=== PATIENT | female | born 1985 ===

== ENCOUNTER 2020-03-08 15:00 | Inpatient (IN) | payer OTHER ==
[~2020-03-08] VITALS: Ht 157.5 cm; Wt 77.1 kg
[2020-03-25] MEDS ORDERED: PRENATAL TABLE1 EAC1 PO (05:21)
[2020-03-25] MEDS ORDERED: IRON236 MG PO (05:22)
== END 2020-03-27 10:26 | disposition home or self-care (01) | DRG 807 ==
LOC: LDR 03-25 08:30 → OB/GYN 03-25 15:00 → SURG-SUITE 03-25 15:48
PROVIDERS: ADMIT Specialist; ATTEND Specialist
PROC: 10E0XZZ Delivery of Products of Conception, External Approach (ICD-10-PCS; principal; 2020-03-25)
PROC: 0HQ9XZZ Repair Perineum Skin, External Approach (ICD-10-PCS; 2020-03-25)
PROC: 0UQGXZZ Repair Vagina, External Approach (ICD-10-PCS; 2020-03-25)
PROC: 4A1HXFZ Monitoring of Products of Conception, Cardiac Rhythm, External Approach (ICD-10-PCS; 2020-03-25)
DX: O70.0 First degree perineal laceration during delivery (principal); Z37.0 Single live birth; O71.89 Other specified obstetric trauma; O13.4 Gestational [pregnancy-induced] hypertension without significant proteinuria, complicating childbirth; Z3A.40 40 weeks gestation of pregnancy

== ENCOUNTER 2020-03-25 03:55 | Outpatient (CLI) | payer OTHER ==
[2020-03-25] MEDS ORDERED: PRENATAL TABLE1 EAC1 PO (05:21)
[2020-03-25] MEDS ORDERED: IRON236 MG PO (05:22)
== END 2020-03-25 08:32 | disposition still patient (30) ==
LOC: OBS/DEL 03:55
PROVIDERS: ATTEND Specialist
DX: O13.3 Gestational [pregnancy-induced] hypertension without significant proteinuria, third trimester (principal); Z20.828 Contact with and (suspected) exposure to other viral communicable diseases

== ENCOUNTER 2021-10-03 13:03 | Outpatient (CLI) | payer OTHER ==
[~2021-10-03 13:03] MED LIST: IRON236 MG PO; PRENATAL TABLE1 EAC1 PO
== END 2021-10-03 14:15 | disposition home or self-care (01) ==
LOC: PRENATAL 13:03
PROVIDERS: ATTEND Obstetrics & Gynecology Maternal & Fetal Medicine
DX: O35.0XX0 Maternal care for (suspected) central nervous system malformation in fetus, not applicable or unspecified (principal); O35.3XX0 Maternal care for (suspected) damage to fetus from viral disease in mother, not applicable or unspecified; O09.529 Supervision of elderly multigravida, unspecified trimester; Z3A.23 23 weeks gestation of pregnancy

== ENCOUNTER 2022-01-08 13:51 | Inpatient (IN) | payer OTHER ==
[~2022-01-08] VITALS: Ht 157.5 cm; Wt 3.2 kg
[2022-01-09] MEDS ORDERED: ALLERGY RELIEF180 MG (08:32)
== END 2022-01-11 14:58 | disposition home or self-care (01) | DRG 788 ==
LOC: OBS/DEL 13:51 → NST 13:51 → OBS/DEL 14:43 → LDR 16:08 → OB/GYN 16:08
PROVIDERS: ADMIT Obstetrics & Gynecology; ATTEND Obstetrics & Gynecology
PROC: 4A1HXCZ Monitoring of Products of Conception, Cardiac Rate, External Approach (ICD-10-PCS; 2022-01-08)
PROC: 10D00Z1 Extraction of Products of Conception, Low, Open Approach (ICD-10-PCS; principal; 2022-01-08 17:00)
DX: O82 Encounter for cesarean delivery without indication (principal); O76 Abnormality in fetal heart rate and rhythm complicating labor and delivery; Z3A.37 37 weeks gestation of pregnancy; Z37.0 Single live birth; Z20.822 Contact with and (suspected) exposure to COVID-19

== ENCOUNTER 2022-09-20 13:12 | Outpatient (CLI) | payer OTHER ==
[~2022-09-20 13:12] MED LIST changes: +ALLERGY RELIEF180 MG
== END 2022-09-20 15:00 | disposition home or self-care (01) ==
LOC: PRENATAL 13:12
PROVIDERS: ATTEND Obstetrics & Gynecology Maternal & Fetal Medicine
DX: O36.80X0 Pregnancy with inconclusive fetal viability, not applicable or unspecified (principal); O34.219 Maternal care for unspecified type scar from previous cesarean delivery; O09.529 Supervision of elderly multigravida, unspecified trimester; Z3A.11 11 weeks gestation of pregnancy

== ENCOUNTER 2022-11-20 09:58 | Outpatient (CLI) | payer OTHER | END 2022-11-20 10:56 | disposition home or self-care (01) | LOC: PRENATAL 09:58 | PROVIDERS: ATTEND Obstetrics & Gynecology Maternal & Fetal Medicine | DX: O35.9XX0 Maternal care for (suspected) fetal abnormality and damage, unspecified, not applicable or unspecified (principal); O35.3XX0 Maternal care for (suspected) damage to fetus from viral disease in mother, not applicable or unspecified; O34.219 Maternal care for unspecified type scar from previous cesarean delivery; O44.00 Complete placenta previa NOS or without hemorrhage, unspecified trimester; Z3A.20 20 weeks gestation of pregnancy ==

== ENCOUNTER 2023-02-17 13:36 | Outpatient (CLI) | payer OTHER | END 2023-02-17 13:38 | disposition home or self-care (01) | LOC: PRENATAL 13:36 | PROVIDERS: ATTEND Obstetrics & Gynecology Maternal & Fetal Medicine | DX: O26.849 Uterine size-date discrepancy, unspecified trimester (principal); O36.8199 Decreased fetal movements, unspecified trimester, other fetus; O09.529 Supervision of elderly multigravida, unspecified trimester; O34.219 Maternal care for unspecified type scar from previous cesarean delivery; Z36.9 Encounter for antenatal screening, unspecified; O44.00 Complete placenta previa NOS or without hemorrhage, unspecified trimester; Z3A.33 33 weeks gestation of pregnancy ==

== ENCOUNTER 2023-03-28 09:00 | Inpatient (IN) | payer OTHER ==
[~2023-03-28] VITALS: Ht 157.5 cm; Wt 80.3 kg
[2023-03-28 10:21] LABS: HEMATOCRIT 35.1 % (36.0-45.00); HEMOGLOBIN 11.9 g/dL (12.0-15.00); MEAN CELL VOLUME 98.1 fL (80.00-100.00); MEAN CORPUSCULAR HEMOGLOBIN 33.4 pg (27.00-32.0); PLATELET COUNT 154 K/uL (150-450); RED BLOOD COUNT 3.58 M/uL (4.00-6.00); RED CELL DISTRIBUTION WIDTH 14.1 % (11.5-14.5)
[2023-03-28 10:39] LABS: URINE APPEARANCE Clear; URINE BILIRRUBIN Negative (NEGATIVE); URINE BLOOD Negative; URINE COLOR Yellow; URINE GLUCOSE Negative (NEGATIVE); URINE LEUKOCYTE Negative; URINE NITRATE Negative; URINE PROTEIN Negative (NEGATIVE)
[2023-03-28 10:42] LABS: URINE BACTERIA 978.8 uL (0.0-1933); URINE RBC 2.7 uL (0.0-20.8); URINE WBC 10.1 uL (0.0-23.2)
[2023-03-28 10:44] LABS: INR < 0.93; PARTIAL THROMBOPLASTIN TIME 25.2 SECONDS (22.0-34.0); PROTHROMBIN TIME 9.3 SECONDS (9.0-11.5)
[2023-03-28 10:53] LABS: URINE MUCUS MODERATE
[2023-04-02] MEDS ORDERED: PRENATAL TABLE1 EAC1 PO (07:55)
[2023-04-02 19:52] LABS: HEMATOCRIT 36.5 % (36.0-45.00); HEMOGLOBIN 12.5 g/dL (12.0-15.00); MEAN CELL VOLUME 96.1 fL (80.00-100.00); MEAN CORPUSCULAR HGB CONC 34.4 g/dl (32.0-36.0); PLATELET COUNT 148 K/uL (150-450); RED CELL DISTRIBUTION WIDTH 14.3 % (11.5-14.5)
[2023-04-02 22:07] LABS: ABG pCO2 41.3 mmHg (35-45)
[2023-04-02 22:08] LABS: ABG PO2 59.6 mmHg (80-100)
[2023-04-02 22:09] LABS: BASE EXCESS -1.8 mmol/l; BICARBONATE 23.4 mmol/l (23-25); SaO2 89.4 %; Tco2 24.6 mmol/l
[2023-04-02 22:10] LABS: o2 21 %
== END 2023-04-05 13:57 | disposition home or self-care (01) | DRG 785 ==
LOC: OB/GYN 04-02 07:08 → O/R 04-02 07:08 → OB/GYN 04-02 08:45
PROVIDERS: ADMIT Obstetrics & Gynecology; ATTEND Obstetrics & Gynecology
PROC: 0UB70ZZ Excision of Bilateral Fallopian Tubes, Open Approach (ICD-10-PCS; 2023-04-02)
PROC: 4A1HXCZ Monitoring of Products of Conception, Cardiac Rate, External Approach (ICD-10-PCS; 2023-04-02)
PROC: 10D00Z1 Extraction of Products of Conception, Low, Open Approach (ICD-10-PCS; principal; 2023-04-02 08:45)
DX: O34.211 Maternal care for low transverse scar from previous cesarean delivery (principal); Z3A.39 39 weeks gestation of pregnancy; Z37.0 Single live birth; Z20.822 Contact with and (suspected) exposure to COVID-19; Z30.2 Encounter for sterilization

== ENCOUNTER → 2025-03-01 07:30 | Outpatient (CLI) | payer OTHER | END | disposition home or self-care (01) | LOC: PRENATAL 07:30 | PROVIDERS: ATTEND Obstetrics & Gynecology Maternal & Fetal Medicine | DX: O44.02 Complete placenta previa NOS or without hemorrhage, second trimester (principal); O09.522 Supervision of elderly multigravida, second trimester; O36.1920 Maternal care for other isoimmunization, second trimester, not applicable or unspecified; O34.219 Maternal care for unspecified type scar from previous cesarean delivery; Z3A.20 20 weeks gestation of pregnancy ==